=== PATIENT | female | born 1970 | race Caucasian/White ===

== ENCOUNTER 2016-09-04 20:32 | Emergency (ER) | payer OTHER ==
[~2016-09-04] VITALS: Ht 167.6 cm; Wt 94.9 kg
[~2016-09-04 20:32] MED LIST: ABILIFY20 MG PO; ADDERALL30 MG PO; ALBUTEROL SULF8.5 GM IH; ALBUTEROL17 GM IH; AMBIEN10 MG PO; ASPIRIN BUFFER325 MG PO; BUSPAR15 MG PO; CIPRO500 MG PO; COGENTIN0.5 MG PO; COGENTIN2 MG PO; CYMBALTA60 MG PO; DEPAKOTE500 MG PO; DESYREL 150 MG150 MG PO; FIORICET,ESG1 TABLET PO; FLEXERIL10 MG PO; FLUTICASONE PRO16 GM BOTH NARES; INDOCIN25 MG PO; KEFLEX500 MG PO; MOTRIN800 MG PO; MUCUS RELIEF600 M1 PO; NAPROSYN500 MG PO; NOHOMEMEDS; NORCO 10/3251 TABLET PO; NORCO 5/3251 TABLET PO; Neosporin Ointment TP; OXCARBAZEPINE150 MG PO; PEN-VEE K,VEET500 MG PO; PERCOCET 5/31 TABLET PO; PREDNISONE10 M1 PO; PROzac PO; REGLAN10 MG PO; ROBITUSSIN NIG118 ML PO; TOPAMAX100 MG PO; TOPAMAX25 MG PO; TRILEPTAL300 MG PO; VENTOLIN HFA18 GM IH; XANAX1 MG PO; ZITHROMAX Z-PA250 MG PO; ZOFRAN ODT4 MG PO; ZOFRAN4 MG PO
[2016-09-04 21:30] LABS: HEMATOCRIT 43.4 % (36.0-46.0); MCH 30.9 PG (29.0-34.0); MCHC 35.3 G/DL (30.0-36.0); MCV 87.7 FL (83-99); MEAN PLAT.VOLUME 9.1 uM^3 (9.5-12.4); PLATELET COUNT 373 K/uL (156-360); RBC DIS.WIDTH-CV 13.2 % (11.8-14.6); RBC DIS.WIDTH-SD 41.7 % (39-53); RED BLOOD COUNT 4.95 M/uL (3.80-5.20); WHITE BLOOD COUNT 10.9 K/uL (4.1-10.2)
[2016-09-04 21:39] LABS: CHLORIDE 105 mEq/L (99-109); POTASSIUM 4.2 mEq/L (3.7-5.4); SODIUM 135 mEq/L (136-147)
[2016-09-04 21:41] LABS: GLUCOSE 138 mg/dL (70-99)
[2016-09-04 21:42] LABS: ANION GAP 9 MEQ/L (2-14)
[2016-09-04 21:42] LABS: ADD MIUA? NO; BILIRUBIN NEGATIVE; BLOOD NEGATIVE; COLOR YELLOW ((YELLOW)); GLUCOSE (STRIP) NEGATIVE; KETONES NEGATIVE; LEUKOCYTES NEGATIVE; NITRITE NEGATIVE; PROTEIN (STRIP) NEGATIVE; SPECIFIC GRAVITY 1.007 (1.000-1.030); UCUL ADDED? NO; UROBILINOGEN 0.2 MG/DL (0.2-1.0)
[2016-09-04 21:45] LABS: GFR ESTIMATE (CALCULATED) > 59 mL/min/
[2016-09-04 21:46] LABS: UREA NITROGEN (BUN) 13 mg/dL (9-23)
[2016-09-04 22:27] LABS: TROP-I INTERPRETATION NEGATIVE; TROPONIN-I < 0.01 ng/mL (0.0-0.30)
[2016-09-05 03:18] VITALS: BP 128/78
== END 2016-09-05 03:23 | disposition left against medical advice (07) ==
LOC: EME 20:32
PROVIDERS: Personal Emergency Response Attendant
DX: R03.0 Elevated blood-pressure reading, without diagnosis of hypertension (principal); R41.3 Other amnesia; R26.2 Difficulty in walking, not elsewhere classified; Z53.21 Procedure and treatment not carried out due to patient leaving prior to being seen by health care provider
CPT/HCPCS: 70450; 71020; 80048; 81003; 84484; 85027; 93005

== ENCOUNTER 2016-10-13 17:27 | Emergency (ER) | payer OTHER ==
[~2016-10-13] VITALS: Ht 167.6 cm; Wt 97.5 kg
[2016-10-13] MEDS ORDERED: VICODIN ES 7.51 EAC1 PO (18:19)
[2016-10-13] MEDS ORDERED: MOVANTIK25 MG PO (18:19)
[2016-10-13 19:54] LABS: ADD MIUA? NO; BILIRUBIN NEGATIVE; BLOOD NEGATIVE; COLOR YELLOW ((YELLOW)); GLUCOSE (STRIP) NEGATIVE; KETONES NEGATIVE; LEUKOCYTES NEGATIVE; NITRITE NEGATIVE; PROTEIN (STRIP) NEGATIVE; UCUL ADDED? NO; UROBILINOGEN 0.2 MG/DL (0.2-1.0)
[2016-10-13 19:55] LABS: BASOPHIL COUNT 0.1 K/uL (0-0.1); EOSINOPHIL (%) 4.2 % (0-5); EOSINOPHIL COUNT 0.5 K/uL (0-0.3); IMMATURE GRANULOCYTE (%) 0.2 % (0.0-0.7); IMMATURE GRANULOCYTE COUNT 0.2 K/uL; LYMPHOCYTE COUNT 4.7 K/uL (1.0-2.8); MCHC 34.8 G/DL (30.0-36.0); MCV 89.2 FL (83-99); MEAN PLAT.VOLUME 9.2 uM^3 (9.5-12.4); MONOCYTE (%) 7.6 % (3-12); MONOCYTE COUNT 0.9 K/uL (0-0.8); NEUTROPHIL (%) 47.5 % (45-76); NEUTROPHIL COUNT 5.5 K/uL (1.8-6.4); PLATELET COUNT 392 K/uL (156-360); RBC DIS.WIDTH-CV 12.7 % (11.8-14.6); RBC DIS.WIDTH-SD 40.7 % (39-53); RED BLOOD COUNT 4.71 M/uL (3.80-5.20); WHITE BLOOD COUNT 11.6 K/uL (4.1-10.2)
[2016-10-13 20:07] LABS: CHLORIDE 103 mEq/L (99-109); POTASSIUM 4.4 mEq/L (3.7-5.4); SODIUM 139 mEq/L (136-147)
[2016-10-13 20:09] LABS: GLUCOSE 104 mg/dL (70-99)
[2016-10-13 20:10] LABS: ANION GAP 6 MEQ/L (2-14)
[2016-10-13 20:11] LABS: TOTAL BILIRUBIN 0.2 mg/dL (0.0-1.0)
[2016-10-13 20:12] LABS: ALKALINE PHOSPHATASE 66 IU/L (3-129)
[2016-10-13 20:13] LABS: GFR ESTIMATE (CALCULATED) > 59 mL/min/
[2016-10-13 20:14] LABS: UREA NITROGEN (BUN) 9 mg/dL (9-23)
[2016-10-13 20:16] LABS: LIPASE 35 U/L (1.0-51.0)
[2016-10-13] MEDS ORDERED: MINIPRESS1 MG PO (20:28)
[2016-10-13 21:03] VITALS: BP 123/92
== END 2016-10-13 21:03 | disposition home or self-care (01) ==
LOC: EME 17:27
PROVIDERS: Emergency Medicine
DX: K59.00 Constipation, unspecified (principal); J45.909 Unspecified asthma, uncomplicated; J44.9 Chronic obstructive pulmonary disease, unspecified; F31.9 Bipolar disorder, unspecified; F17.200 Nicotine dependence, unspecified, uncomplicated
CPT/HCPCS: 74020; 80053; 81003; 83690; 85025; 99281; 99285

== ENCOUNTER 2016-12-19 13:04 | Emergency (ER) | payer OTHER ==
[~2016-12-19] VITALS: Ht 167.6 cm; Wt 94.5 kg
[~2016-12-19 13:04] MED LIST changes: +MINIPRESS1 MG PO; +MOVANTIK25 MG PO; +VICODIN ES 7.51 EAC1 PO
[2016-12-19 13:24] VITALS: BP 90/52
[2016-12-19] MEDS ORDERED: BENADRYL25 MG PO (14:53)
== END 2016-12-19 15:09 | disposition home or self-care (01) ==
LOC: EME 13:04
DX: G24.02 Drug induced acute dystonia (principal); T43.625A Adverse effect of amphetamines, initial encounter
CPT/HCPCS: 99281; 99284; J1200

== ENCOUNTER 2017-04-15 10:22 | Emergency (ER) | payer OTHER ==
[~2017-04-15] VITALS: Ht 167.6 cm; Wt 96.6 kg
[~2017-04-15 10:22] MED LIST changes: +BENADRYL25 MG PO
[2017-04-15] MEDS ORDERED: MOTRIN800 MG PO (12:51)
[2017-04-15 13:07] VITALS: BP 131/74
== END 2017-04-15 13:08 | disposition home or self-care (01) ==
LOC: EME 10:22
DX: M25.461 Effusion, right knee (principal); J45.909 Unspecified asthma, uncomplicated; F17.200 Nicotine dependence, unspecified, uncomplicated
CPT/HCPCS: 73564; 99281; 99284

== ENCOUNTER 2017-06-12 21:24 | Emergency (ER) | payer OTHER ==
[~2017-06-12] VITALS: Ht 167.6 cm; Wt 100.2 kg
[2017-06-13 00:24] LABS: BASOPHIL COUNT 0.1 K/uL (0-0.1); EOSINOPHIL (%) 3.3 % (0-5); EOSINOPHIL COUNT 0.4 K/uL (0-0.3); HEMATOCRIT 39.4 % (36.0-46.0); IMMATURE GRANULOCYTE (%) 0.3 % (0.0-0.7); INSTRUMENT ABS NEUTROPHIL CT 5.3 K/uL; LYMPHOCYTE COUNT 5.6 K/uL (1.0-2.8); MCH 30.7 PG (29.0-34.0); MCHC 33.8 G/DL (30.0-36.0); MEAN PLAT.VOLUME 9.3 uM^3 (9.5-12.4); MONOCYTE (%) 6.6 % (3-12); MONOCYTE COUNT 0.8 K/uL (0-0.8); NEUTROPHIL (%) 43.3 % (45-76); NEUTROPHIL COUNT 5.3 K/uL (1.8-6.4); PLATELET COUNT 342 K/uL (156-360); RBC DIS.WIDTH-CV 12.4 % (11.8-14.6); RBC DIS.WIDTH-SD 41.3 % (39-53); RED BLOOD COUNT 4.33 M/uL (3.80-5.20); WHITE BLOOD COUNT 12.3 K/uL (4.1-10.2)
[2017-06-13 00:25] LABS: ADD MIUA? YES; BILIRUBIN NEGATIVE; BLOOD NEGATIVE; COLOR YELLOW ((YELLOW)); GLUCOSE (STRIP) NEGATIVE; KETONES NEGATIVE; LEUKOCYTES LARGE; NITRITE NEGATIVE; PROTEIN (STRIP) 100; UROBILINOGEN 0.2 MG/DL (0.2-1.0)
[2017-06-13 00:32] LABS: CHLORIDE 99 mEq/L (99-109); POTASSIUM 3.8 mEq/L (3.7-5.4); SODIUM 135 mEq/L (136-147)
[2017-06-13 00:34] LABS: GLUCOSE 77 mg/dL (70-99)
[2017-06-13 00:35] LABS: ANION GAP 6 MEQ/L (2-14)
[2017-06-13 00:36] LABS: TOTAL BILIRUBIN 0.1 mg/dL (0.0-1.0)
[2017-06-13 00:37] LABS: SERUM ETHYL ALCOHOL < 10 mg/dL
[2017-06-13 00:38] LABS: GFR ESTIMATE (CALCULATED) > 59 mL/min/
[2017-06-13 00:39] LABS: ALKALINE PHOSPHATASE 64 IU/L (3-129)
[2017-06-13 00:40] LABS: UREA NITROGEN (BUN) 10 mg/dL (9-23)
[2017-06-13 00:41] LABS: SALICYLATE < 5.0 MG/DL (15-30)
[2017-06-13 00:41] LABS: AMPHETAMINE NEGATIVE (500 ng/mL); BARBITURATES NEGATIVE (200 ng/mL); BENZODIAZEPINES NEGATIVE (150 ng/mL); COCAINE NEGATIVE (150 ng/mL); INTERNAL CONTROLS VALID? YES; METHADONE NEGATIVE (200 ng/mL); METHAMPHETAMINE NEGATIVE (500 ng/mL); OPIATES (MORPHINE) PRESUMPTIVE POSITIVE (100 ng/mL); OXYCODONE NEGATIVE (100 ng/mL); PHENCYCLIDINE NEGATIVE (25 ng/mL); PROPOXYPHENE NEGATIVE (300 ng/mL); THC CANNABINOIDS NEGATIVE (50 ng/mL); TRICYCLIC ANTIDEPRESSANTS NEGATIVE (300 ng/mL)
[2017-06-13 00:42] LABS: ADD MEDTOX COMMENT Y
[2017-06-13 00:54] LABS: RED BLOOD CELLS NONE SEEN /HPF (0-5); WHITE BLOOD CELLS 20-30 /HPF (0-5)
[2017-06-13 00:55] LABS: BACTERIA 2+ /HPF; CASTS NONE SEEN /LPF; CRYSTALS NONE SEEN; EPITHELIAL CELLS 1+ /HPF; MUCUS RARE /LPF; UCUL ADDED? YES
[2017-06-13 01:24] LABS: INTERNAL CONTROL VALID? YES
[2017-06-13] MEDS ORDERED: MACROBID100 MG PO (02:23)
[2017-06-13 03:12] VITALS: BP 150/76
== END 2017-06-13 03:19 | disposition home or self-care (01) ==
LOC: EME 21:24
PROVIDERS: Emergency Medicine
DX: F33.1 Major depressive disorder, recurrent, moderate (principal); N39.0 Urinary tract infection, site not specified; R44.0 Auditory hallucinations; J44.9 Chronic obstructive pulmonary disease, unspecified; F41.9 Anxiety disorder, unspecified; F31.9 Bipolar disorder, unspecified; F17.200 Nicotine dependence, unspecified, uncomplicated
CPT/HCPCS: 80053; 81003; 84703; 84999; 85025; 87086; 90839; 99281; 99285; G0480

== ENCOUNTER 2017-08-15 17:45 | Emergency (ER) | payer OTHER ==
[~2017-08-15] VITALS: Ht 167.6 cm; Wt 102.3 kg
[~2017-08-15 17:45] MED LIST changes: +MACROBID100 MG PO
[2017-08-15 18:08] VITALS: BP 106/64
== END 2017-08-15 20:19 | disposition left against medical advice (07) ==
LOC: EME 17:45
DX: M25.512 Pain in left shoulder (principal); Z53.21 Procedure and treatment not carried out due to patient leaving prior to being seen by health care provider

== ENCOUNTER 2017-09-12 15:30 | Emergency (ER) | payer OTHER ==
[~2017-09-12] VITALS: Ht 167.6 cm; Wt 95.7 kg
[2017-09-12 16:11] LABS: ALBUMIN 4.3 g/dL (3.2-4.8); CHLORIDE 103 mEq/L (99-109); POTASSIUM 3.9 mEq/L (3.7-5.4); SODIUM 136 mEq/L (136-147)
[2017-09-12 16:13] LABS: GLUCOSE 105 mg/dL (70-99)
[2017-09-12 16:15] LABS: TOTAL BILIRUBIN 0.2 mg/dL (0.0-1.0)
[2017-09-12 16:17] LABS: ALKALINE PHOSPHATASE 68 IU/L (3-129); CREATININE 0.8 mg/dL (0.6-1.3); GFR ESTIMATE (CALCULATED) > 59 mL/min/
[2017-09-12 16:18] LABS: AST (GOT) 16 IU/L (2-34); UREA NITROGEN (BUN) 7 mg/dL (9-23)
[2017-09-12 16:20] LABS: ALT (GPT) 22 IU/L (3-49); CREATINE KINASE 87 IU/L (1-294)
[2017-09-12 16:25] LABS: QUANTITATIVE HCG < 4.0 MIU/ML
[2017-09-12 16:52] LABS: BASOPHIL (%) 0.8 % (0-1); BASOPHIL COUNT 0.1 K/uL (0-0.1); EOSINOPHIL (%) 3.2 % (0-5); EOSINOPHIL COUNT 0.4 K/uL (0-0.3); HEMATOCRIT 44.2 % (36.0-46.0); HEMOGLOBIN 15.3 G/DL (11.9-15.5); IMMATURE GRANULOCYTE (%) 0.2 % (0.0-0.7); LYMPHOCYTE (%) 45.1 % (15-42); LYMPHOCYTE COUNT 6.1 K/uL (1.0-2.8); MCH 30.6 PG (29.0-34.0); MCHC 34.6 G/DL (30.0-36.0); MCV 88.4 FL (83-99); MONOCYTE (%) 6.1 % (3-12); MONOCYTE COUNT 0.8 K/uL (0-0.8); NEUTROPHIL (%) 44.6 % (45-76); NEUTROPHIL COUNT 6.1 K/uL (1.8-6.4); PLATELET COUNT 398 K/uL (156-360); RBC DIS.WIDTH-CV 12.3 % (11.8-14.6); RBC DIS.WIDTH-SD 40.4 % (39-53); WHITE BLOOD COUNT 13.6 K/uL (4.1-10.2)
[2017-09-12 17:06] LABS: PTT 27.9 SEC (25-37)
[2017-09-12 17:56] LABS: APPEARANCE CLEAR ((CLEAR)); BILIRUBIN NEGATIVE; BLOOD NEGATIVE; COLOR YELLOW ((YELLOW)); GLUCOSE (STRIP) NEGATIVE; KETONES NEGATIVE; LEUKOCYTES TRACE; NITRITE NEGATIVE; PROTEIN (STRIP) NEGATIVE; UROBILINOGEN 0.2 MG/DL (0.2-1.0)
[2017-09-12 18:03] LABS: BACTERIA RARE /HPF; EPITHELIAL CELLS 1+ /HPF; MUCUS TRACE /LPF; RED BLOOD CELLS 0-5 /HPF (0-5); UCUL ADDED? YES
[2017-09-12 19:26] VITALS: BP 139/84
[2017-09-13] MEDS ORDERED: PERCOCET 10/1 TABLET PO (18:10)
[2017-09-13] MEDS ORDERED: SEROQUEL100 MG PO (18:11)
== END 2017-09-12 19:27 | disposition home or self-care (01) ==
LOC: EME 15:30
PROVIDERS: Physician Assistant
DX: R45.1 Restlessness and agitation (principal); R25.3 Fasciculation; T43.595A Adverse effect of other antipsychotics and neuroleptics, initial encounter; R00.0 Tachycardia, unspecified; Z90.710 Acquired absence of both cervix and uterus; Z90.81 Acquired absence of spleen; F17.200 Nicotine dependence, unspecified, uncomplicated
CPT/HCPCS: 71046; 80053; 81003; 82550; 84702; 85025; 85610; 85730; 87040; 87086; 93005; 99281; 99285; J2060; J7030

== ENCOUNTER 2017-09-13 17:51 | Emergency (ER) | payer OTHER ==
[~2017-09-13] VITALS: Ht 165.1 cm; Wt 100.4 kg
[2017-09-13] MEDS ORDERED: PERCOCET 10/1 TABLET PO (18:10)
[2017-09-13] MEDS ORDERED: SEROQUEL100 MG PO (18:11)
[2017-09-13 20:42] LABS: HEMATOCRIT 40.6 % (36.0-46.0); HEMOGLOBIN 14.3 G/DL (11.9-15.5); MCH 31.1 PG (29.0-34.0); MCHC 35.2 G/DL (30.0-36.0); MCV 88.3 FL (83-99); RBC DIS.WIDTH-CV 12.3 % (11.8-14.6); RBC DIS.WIDTH-SD 39.7 % (39-53); WHITE BLOOD COUNT 12.2 K/uL (4.1-10.2)
[2017-09-13 20:51] LABS: CHLORIDE 103 mEq/L (99-109); POTASSIUM 4.3 mEq/L (3.7-5.4); SODIUM 137 mEq/L (136-147)
[2017-09-13 20:52] LABS: GLUCOSE 93 mg/dL (70-99)
[2017-09-13 20:55] LABS: SERUM ETHYL ALCOHOL < 10 mg/dL
[2017-09-13 20:56] LABS: CREATININE 0.8 mg/dL (0.6-1.3); GFR ESTIMATE (CALCULATED) > 59 mL/min/
[2017-09-13 20:58] LABS: UREA NITROGEN (BUN) 9 mg/dL (9-23)
[2017-09-13 20:59] LABS: SALICYLATE < 5.0 MG/DL (15-30)
[2017-09-13 21:00] LABS: ACETAMINOPHEN (TYLENOL) < 10 mcg/mL (10-30)
[2017-09-13 22:01] LABS: PLAT.SUFFICIENCY INCREASED; PLATELET COUNT 366 K/uL (156-360)
[2017-09-13 23:23] VITALS: BP 152/81
== END 2017-09-13 23:25 | disposition home or self-care (01) ==
LOC: EME 17:51
PROVIDERS: Emergency Medicine
DX: R44.3 Hallucinations, unspecified (principal); J44.9 Chronic obstructive pulmonary disease, unspecified; F41.9 Anxiety disorder, unspecified; F32.9 Major depressive disorder, single episode, unspecified; F17.200 Nicotine dependence, unspecified, uncomplicated; Z79.891 Long term (current) use of opiate analgesic; Z88.8 Allergy status to other drugs, medicaments and biological substances
CPT/HCPCS: 70450; 80048; 81003; 85027; 90839; G0480